=== PATIENT | female | born 1980 | race Caucasian/White ===

== ENCOUNTER 2018-11-04 20:08 | Emergency (ER) | payer MEDICAID ==
[~2018-11-04] VITALS: Ht 165.1 cm; Wt 59.0 kg
[2018-11-04] MEDS ORDERED: TETRACAINE HCL/PF 0.5% UD 2 ML BOTTLE ONE (21:05)
[2018-11-04] MEDS ORDERED: FLUORESCEIN SODIUM OPHTH 1 EA STRIP ONE ×2 (21:05→21:27)
--- NOTE | 2018-11-04 21:08 | NUR ---
PT WAS MOVED FROM CHAIR 1 TO ER 13. TETRACAINE AND [id number] STRIP GIVEN TO NOE WALLS.
--- NOTE | 2018-11-04 21:10 | NUR ---
Miles YARBROUGH, PAC IS AT THE BEDSIDE EXAMINING THE PT'S EYE. LAZARO LAMP IS AT THE BEDSIDE.
[2018-11-04] MEDS ORDERED: TETRACAINE HCL/PF 0.5% UD 2 ML BOTTLE LEFTEYE ONE (21:30)
[2018-11-04] MEDS ORDERED: FLUORESCEIN SODIUM OPHTH 1 EA STRIP OP ONE (21:30)
--- NOTE | 2018-11-04 21:30 | NUR ---
DR ORTIZ IS AT THE BEDSIDE EXAMINING THE PT'S EYE.
--- NOTE | 2018-11-04 21:58 | NUR ---
Patient discharged to home in stable condition. Written and verbal after care instructions given. Patient verbalizes understanding of instruction AND RX. PT TO F/U WITH HER OPTHAMOLOGIST IN 24-48 HRS. [facility]FERRAL TO [facility] GIVEN. VSS. NAD NOTED. PT AMBULATED OUT WITH A STEADY GAIT. PT'S IS DRIVING PT HOME.
[2018-11-04 21:59] VITALS: BP 122/78
== END 2018-11-04 22:00 | disposition home or self-care (01) ==
LOC: ER 20:11
DX: S05.02XA Injury of conjunctiva and corneal abrasion without foreign body, left eye, initial encounter (principal); X58.XXXA Exposure to other specified factors, initial encounter; Y93.89 Activity, other specified; Y92.89 Other specified places as the place of occurrence of the external cause; Y99.8 Other external cause status